=== PATIENT | male | born 1945 | race Asian ===

== ENCOUNTER 2016-07-19 13:46 | Emergency (ER) | payer OTHER, MEDICARE ==
[~2016-07-19] VITALS: Ht 172.7 cm; Wt 76.1 kg
[~2016-07-19 13:46] MED LIST: GLUCTAB PO; LISI2.5T3 PO; LORTA5 PO; SIMV5TAB32 PO; ULTR50TA PO
[2016-07-19 13:51] VITALS: BP 137/97; PULSE 98; RESP 20; TEMP 98.4; O2SAT 95
[2016-07-19] MEDS ORDERED: IBUPROFEN 600 MG TAB PO ONE (14:30)
[2016-07-19] MEDS ORDERED: SIMV40TA PO (14:37)
[2016-07-19] MEDS ORDERED: METF850T PO (14:37)
[2016-07-19] MEDS ORDERED: LISI-515 PO (14:37)
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
[2016-07-19] MEDS ORDERED: MOTR200T4 PO (15:36)
== END 2016-07-19 15:59 | disposition home or self-care (01) ==
LOC: PHED 13:46
DX: S80.12XA Contusion of left lower leg, initial encounter (principal); E11.9 Type 2 diabetes mellitus without complications; I10 Essential (primary) hypertension; E78.00 Pure hypercholesterolemia, unspecified; V86.99XA Unspecified occupant of other special all-terrain or other off-road motor vehicle injured in nontraffic accident, initial encounter; Y93.I9 Activity, other involving external motion; Y92.9 Unspecified place or not applicable
CPT/HCPCS: 99283

== ENCOUNTER 2016-07-21 08:49 | Emergency (ER) | payer MEDICARE, OTHER ==
[~2016-07-21] VITALS: Ht 172.7 cm; Wt 76.0 kg
[~2016-07-21 08:49] MED LIST changes: -GLUCTAB PO; +LISI-515 PO; -LISI2.5T3 PO; -LORTA5 PO; +METF850T PO; +MOTR200T4 PO; +SIMV40TA PO; -SIMV5TAB32 PO; -ULTR50TA PO
[2016-07-21 09:03] VITALS: BP 152/94; PULSE 76; RESP 16; TEMP 97.8; O2SAT 99
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
== END 2016-07-21 09:46 | disposition home or self-care (01) ==
LOC: PHED 08:49
DX: M51.16 Intervertebral disc disorders with radiculopathy, lumbar region (principal); I10 Essential (primary) hypertension; E78.00 Pure hypercholesterolemia, unspecified; E11.9 Type 2 diabetes mellitus without complications; F19.21 Other psychoactive substance dependence, in remission; Z79.4 Long term (current) use of insulin; V86.99XA Unspecified occupant of other special all-terrain or other off-road motor vehicle injured in nontraffic accident, initial encounter; Y93.89 Activity, other specified; Y92.89 Other specified places as the place of occurrence of the external cause; Y99.0 Civilian activity done for income or pay
CPT/HCPCS: 99283

== ENCOUNTER 2016-11-08 20:12 | Emergency (ER) | payer MEDICARE, OTHER ==
[~2016-11-08] VITALS: Ht 165.1 cm; Wt 74.4 kg
[~2016-11-08 20:12] MED LIST changes: -MOTR200T4 PO
[2016-11-08 20:19] VITALS: BP 145/94; PULSE 90; RESP 16; TEMP 98.2; O2SAT 97
[2016-11-08] MEDS ORDERED: LIDOCAINE 1%/EPINEPHrine 1:100,000 SOLN 20 ML VIAL INFIL ONE (21:15)
--- NOTE | 2016-11-08 21:42 | PD ---
HPI Chief Complaint: Laceration/Skin Injury Time Seen by Provider: 21:40 Travel History International Travel<30 days: No Contact w/Intl Traveler<30days: No Traveled to known affect area: No History of Present Illness HPI 70-year-old male presents to the emergency room for evaluation of left elbow pain and laceration after injuring it just prior to arrival. Patient fell off a step ladder and cut his left elbow. He denies significant pain in the elbow. He has a large laceration that is nonbleeding. He believes he is up-to-date on tetanus. Adamantly denies any other injuries. PFSH Past Medical History Cardiovascular Problems: Yes (htn not on meds) High Cholesterol: Yes Diabetes: Yes (type 2) Patient Takes Glucophage: No (states quit 2 months ago) Diminished Hearing: No Hypertension: Yes Inguinal Hernia: Yes Immunizations Current: Yes Tetanus Vaccination: < 5 Years Influenza Vaccination: Yes ?: Not Social History Alcohol Use: No Tobacco Use: No Substance Use: Yes (states hx of) Allergies-Medications (Allergen,Severity, Reaction): Coded Allergies: No Known Allergies (Verified , 11/08/16) Reported Meds & Prescriptions Reported Meds & Active Scripts Active Review of Systems Except as stated in HPI: all other systems reviewed are Neg Physical Exam Narrative GENERAL: Well-nourished, well-developed male in no acute distress. Afebrile. Ambulatory. SKIN: Focused skin assessment warm/dry. There is a 5 cm laceration to the left lateral elbow. It is well approximated. Nonbleeding. HEAD: Normocephalic. EYES: No scleral icterus. No injection or drainage. NECK: Supple, trachea midline. No JVD or lymphadenopathy. CARDIOVASCULAR: Regular rate and rhythm without murmurs, gallops, or rubs. RESPIRATORY: Breath sounds equal bilaterally. No accessory muscle use. PSYCHIATRIC: No delusional thought processes. No hallucinations. Data Data Last Documented VS Vital Signs Date Time Temp Pulse Resp B/P Pulse Ox O2 Delivery O2 Flow Rate FiO2 11/08/16 20:19 98.2 90 16 145/94 97 Orders Lidocai-Epi 1%-1:100,000 Inj (Xylocaine- (11/08/16 21:15) MDM Medical Decision Making Medical Screen Exam Complete: Yes Emergency Medical Condition: Yes Medical Record Reviewed: Yes Differential Diagnosis Laceration versus abrasion versus contusion versus fracture unlikely Narrative Course 70-year-old male presents to the emergency room for evaluation of laceration to his left lateral elbow. Patient fell and struck his elbow and somewhat prior to arrival. He adamantly denies any other injuries. Tetanus is up-to-date. Physical exam reveals a 5 cm superficial laceration that is well approximated. Nonbleeding. Laceration repaired, see procedure notes for details. Patient discharged with wound care instructions and told to follow up with a primary care physician or return to the emergency room for worsening symptoms. He understands and agrees to this plan. Procedures Procedure Narrative LACERATION LOCATION: Left lateral elbow LENGTH: 5 cm NUMBER OF STITCHES/MIGUEL: A simple interrupted REPAIR: The area of the laceration was prepped with Betadine and sterilely draped. The laceration was infiltrated with 1% lidocaine with epinephrine. The wound was copiously irrigated and explored without evidence of foreign body , tendon injury or neurovascular injury. The wound was closed using 5-0 Prolene. This was a single layer repair. A sterile dressing was applied. The patient was advised to keep the dressing clean and dry. Patient tolerated the procedure well. Diagnosis Primary Impression: Laceration of left elbow Qualified Code: S51.012A - Laceration of left elbow, initial encounter Referrals: Primary Care Physician Patient Instructions: General Instructions, Laceration (ED) Additional Instructions: Rest and drink plenty of fluids. Keep wound clean and dry. Apply triple antibiotic ointment daily. Sutures out in 10 days. Follow up with a primary care physician. Return to emergency room for worsening symptoms, as discussed. Disposition: 01 DISCHARGE HOME Condition: Stable Carolin Cook November 08, 2016 21:42
== END 2016-11-08 21:59 | disposition home or self-care (01) ==
LOC: PHEFT 20:12
DX: S51.012A Laceration without foreign body of left elbow, initial encounter (principal); E11.9 Type 2 diabetes mellitus without complications; I10 Essential (primary) hypertension; W11.XXXA Fall on and from ladder, initial encounter
CPT/HCPCS: 12002